=== PATIENT | female | born 1940 | race Caucasian/White ===

== ENCOUNTER → 2017-03-09 | Outpatient (CLI) | payer MEDICARE, OTHER ==
[~2017-03-09] MED LIST: DABI75CA3 PO; ESCI10TA10 PO; LEVO50TA PO
--- NOTE | 2017-03-09 12:16 | RAD ---
Bilateral duplex carotid sonography History: Previous stroke. Duplex sonography of the cervical portion of both carotid arteries was performed. Findings: Right side: Peak systolic flow velocity of the CCA is 67 cm/sec. Peak systolic flow velocity of the ICA is 76 cm/sec. The ICA/CCA ratio is 1.13. Peak end diastolic flow velocity of the ICA is 25 cm/sec. The peak systolic velocity of the ECA is 41 cm/sec. Right common carotid artery demonstrates mild intimal thickening. Mild plaquing is seen involving the right carotid system. Left side: Peak systolic flow velocity of the CCA is 66 cm/sec. Peak systolic flow velocity of the ICA is 61 cm/sec. The ICA/CCA ratio is 0.92. Peak end diastolic flow velocity of the ICA is 22 cm/sec. Peak systolic flow velocity of the ECA is 51 cm/sec. Left common carotid artery demonstrates mild intimal thickening. Mild plaquing is seen involving the left carotid system. Vertebral arteries: Bilateral vertebral arteries demonstrate antegrade flow. Impression: 1. No hemodynamically significant internal carotid artery stenosis identified. Note: Stenosis calculations for Doppler studies are derived from validated velocity criteria which are known to correlate with NASCET methodology of determining stenosis.
== END | disposition home or self-care (01) ==
LOC: US 11:00
PROVIDERS: ATTEND Specialist
DX: I69.90 Unspecified sequelae of unspecified cerebrovascular disease (principal); Z86.73 Personal history of transient ischemic attack (TIA), and cerebral infarction without residual deficits
CPT/HCPCS: 93880

== ENCOUNTER 2017-03-28 09:18 | Emergency (ER) | payer MEDICARE, OTHER ==
[~2017-03-28] VITALS: Ht 167.6 cm; Wt 57.6 kg
--- NOTE | 2017-03-28 09:40 | EKG ---
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
[2017-03-28] MEDS ORDERED: ASPIRIN 81 MG TAB.CHEW PO ONE (09:45)
--- NOTE | 2017-03-28 09:49 | PHYS DOC ---
General Chief Complaint: SHORTNESS OF BREATH Stated Complaint: SOA Time Seen by MD: 09:19 Source: patient Exam Limitations: clinical condition Problems: History of Present Illness Initial Comments Pt is 77/F to ED with spouse for cp/sob. 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 Spouse says he noticed pt coughing yesterday afternoon which worsened thru the night. Primarily nonproductive some clear "saliva" type sputum. Pt has had some mild chest tightness and worsening BREWSTER today. Peripheral edema noted on exam, pt/spouse unable to state whether LE edema is new/worse or at baseline. Chronic pradaxa anticoagulation due to atrial fibrillation, follows with Dr Del Rosario PCP and Dr Lema for arrhythmia. Timing/Duration: unsure (at least 12-15 hours according to pt spouse) Severity: moderate Modifying Factors: worse with movement, improves with rest Associated Symptoms: chest pain, cough, malaise, shortness of breath Allergies: Coded Allergies: No Known Drug Allergies (Unverified , 01/07/14) Past Medical History Medical History: other (CVA 2010 with apraxia/aphasia/right side weakness, atrial fibrillation) Surgical History: noncontributory Social History Smoker: non-smoker Alcohol: none Drugs: none Review of Systems Constitutional: denies chills, denies diaphoresis, denies fever, malaise EENTM: denies eye pain, denies blurred vision, denies ear pain, nose congestion , denies throat pain, denies throat swelling Respiratory: cough, denies shortness of breath, wheezing Cardiovascular: denies chest pain, edema, denies palpitations, denies syncope Gastrointestinal: denies diarrhea, denies nausea, denies vomiting Genitourinary: denies discharge, denies hematuria Psychiatric/Neurological: see HPI, denies headache Hematologic/Lymphatic: see HPI Physical Exam General Appearance: WD/WN, no apparent distress Ear, Nose, Throat: normal ENT inspection (yellow nasal/PND) Neck: non-tender, supple Respiratory: other (mild wheezes b/l with good air movement chest nontender no resp distress) Cardiovascular: normal peripheral pulses, regular rate, rhythm Gastrointestinal: non tender, soft Back: no CVA tenderness, no vertebral tenderness Neurologic/Psychiatric: alert, normal mood/affect, other (neuro at baseline see HPI) Skin: normal color, warm/dry Orders, Labs, Meds EKG: irregular 89bpm, artifact noted from pt tremor on arrival PATIENT: MOSHE SOARES ACCOUNT: [id number] : 1940 LOCATION: ER AGE: 77 SEX: F EXAM STATUS: REG ER ORD. PHYSICIAN: SCAR JESSICA DO REASON: CHEST PAIN, SHORTNESS OF BREATH PROCEDURE: PORTABLE CHEST 1V EXAM: CHEST 1 VIEW History: Chest pain, shortness of breath COMPARISON: 01/07/2014 TECHNIQUE: Single portable radiograph of the chest FINDINGS: The cardiac silhouette is unremarkable. The lungs are clear bilaterally. The costophrenic sulci are clear and well demarcated. IMPRESSION: No radiographic evidence of an acute cardiopulmonary process. DICTATED AND SIGNED BY: WILFRED SCHMITT MD DATE: 03/28/17 1008 CC: RADHA DEL ROSARIO MD; SCAR JESSICA DO ~ UA suspect for UTI will tx while awaiting cultures. Other labs unremarkable. Sx greater than 12 hours, normal labs, VSS. Pt breathing much better good breath sounds, only occasional cough. Pt/spouse note symptom improvement. Will tx to cover URI/UTI with close PCP follow up tomorrow. Tx plan discussed with pt and spouse who express agreement/understanding. Departure Time of Disposition: 11:16 Disposition: 01 HOME, SELF-CARE Diagnosis: URI with bronchospasm, UTI Condition: GOOD Patient Instructions: Bronchospasm, Adult, Upper Respiratory Infection, Adult, [id number], Urinary Tract Infection, [id number] Additional Instructions: Rest, no strenuous activity. Avoid environmental allergens and smoke as you are able. Continue current meds Rx: prednisone, doxycycline, albuterol MDI, guaif/codeine syrup Take meds with food. Follow up with your doctor in 2-3 days for recheck of symptoms and urine culture Return to ED with new or changing symptoms. SCAR JESSICA DO March 28, 2017 09:49
[2017-03-28 09:58] LABS: BASO % 1 % (0-3); EOS % 1 % (0-3); HEMATOCRIT 42.2 % (36.0-47.0); HEMOGLOBIN 14.1 g/dL (12.0-15.5); LYMPH # 0.8 x10^3/uL (1.0-4.8); LYMPH % 26 % (24-48); MEAN CORPUSCULAR HEMOGLOBIN 33 pg (25-35); MEAN CORPUSCULAR HGB CONC 33 g/dL (31-37); MEAN CORPUSCULAR VOLUME 98 fL (79-100); MONO # 0.6 x10^3/uL (0.0-1.1); MONO % 18 % (0-9); NEUT # 1.7 x10^3uL (1.8-7.7); NEUT % 54 % (31-73); PLATELET COUNT 125 x10^3/uL (140-400); RED CELL DISTRIBUTION WIDTH 13.6 % (11.5-14.5); WHITE BLOOD COUNT 3.1 x10^3/uL (4.0-11.0)
[2017-03-28] MEDS ORDERED: FUROSEMIDE 40 MG/4 ML VIAL IVP ONE (10:00)
[2017-03-28] MEDS ORDERED: IV NORMAL SALINE 1,000ML 1,000 ML ONE (10:09)
--- NOTE | 2017-03-28 10:11 | RAD ---
EXAM: CHEST 1 VIEW History: Chest pain, shortness of breath COMPARISON: 01/07/2014 TECHNIQUE: Single portable radiograph of the chest FINDINGS: The cardiac silhouette is unremarkable. The lungs are clear bilaterally. The costophrenic sulci are clear and well demarcated. IMPRESSION: No radiographic evidence of an acute cardiopulmonary process.
[2017-03-28 10:16] LABS: ALBUMIN 3.3 g/dL (3.4-5.0); ALBUMIN/GLOBULIN RATIO 1.1 (1.0-1.7); CALCIUM 8.9 mg/dL (8.5-10.1); CREATININE 0.9 mg/dL (0.6-1.0); POTASSIUM 3.6 mmol/L (3.5-5.1); TOTAL BILIRUBIN 0.1 mg/dL (0.2-1.0)
[2017-03-28 10:31] LABS: TOTAL PROTEIN 6.3 g/dL (6.4-8.2)
[2017-03-28 10:38] LABS: BILIRUBIN,URINE NEG (NEG); CLARITY,URINE CLEAR; COLOR,URINE YELLOW; GLUCOSE,URINE NEG (NEG); NITRITE,URINE NEG (NEG); UROBILINOGEN,URINE 0.2 mg/dL (0.2 mg/dL)
[2017-03-28 10:39] LABS: BACTERIA,URINE 0 /HPF (0-FEW); RBC,URINE RARE /HPF (0-2); SQUAMOUS EPITHELIAL CELL,UR OCC /LPF
[2017-03-28 10:42] LABS: AMPHETAMINE/METHAMPHETAMINE NEG (NEG); BARBITURATES NEG (NEG); BENZODIAZEPINES NEG (NEG); COCAINE NEG (NEG)
[2017-03-28 10:43] LABS: CANNABINOIDS NEG (NEG); METHADONE NEG (NEG); OPIATES NEG (NEG); PHENCYCLIDINE NEG (NEG)
[2017-03-28] MEDS ORDERED: IPRATRPIUM/ALBUTEROL 0.5/2.5MG 3 ML NEBU. ONE (10:44)
[2017-03-28] MEDS ORDERED: IPRATRPIUM/ALBUTEROL 0.5/2.5MG 3 ML NEBU. NEB ONE (11:00)
[2017-03-28] MEDS ORDERED: GUAI118L13 PO (11:15)
[2017-03-28] MEDS ORDERED: PRED20TA PO (11:15)
[2017-03-28] MEDS ORDERED: DOXY100C2 PO (11:15)
[2017-03-28] MEDS ORDERED: ALBU6.7H IH (11:15)
[2017-03-28 11:22] VITALS: BP 125/83
[2017-03-28] MEDS ORDERED: ALBUTEROL SULFATE 8GM INHALER. INH ONE (11:45)
== END 2017-03-28 11:30 | disposition home or self-care (01) ==
LOC: ER 09:18
DX: J06.9 Acute upper respiratory infection, unspecified (principal); J98.01 Acute bronchospasm; N39.0 Urinary tract infection, site not specified; I48.91 Unspecified atrial fibrillation; Z86.73 Personal history of transient ischemic attack (TIA), and cerebral infarction without residual deficits
CPT/HCPCS: 36415; 71010; 80053; 80305; 81001; 82550; 83690; 83880; 84484; 85027; 85379; 85610; 85730; 87086; 93005; 94640; 96374; 99285; J1940; J7613; J7620; G0481; 94664

== ENCOUNTER 2018-11-15 08:48 | Inpatient (IN) | payer MEDICARE, OTHER ==
[~2018-11-15 08:48] MED LIST changes: +ALBU2.5V8 IH; +DOXY100C2 PO; -ESCI10TA10 PO; +GUAI118L13 PO; +LEXAPRO10 MG PO; +PRED20TA PO
--- NOTE | 2018-11-15 09:23 | RAD ---
CT of the head without contrast, 11/15/2017: HISTORY: Slurred speech, stroke Comparison is made to a study from 03/10/2012. There is a large area of encephalomalacia in the left frontotemporal and anterior parietal regions compatible with an old infarct. There is mild compensatory enlargement of the left lateral ventricle. No acute intracranial hemorrhage or mass effect is seen. A small amount of fluid is now present in the left maxillary sinus. There is minimal mucosal thickening in the ethmoid sinuses. IMPRESSION: 1. Large old left cerebral infarct. 2. No acute intracranial abnormality is detected. 3. Minimal fluid in the left maxillary sinus presumably on an inflammatory basis. PQRS Compliance Statement: One or more of the following individualized dose reduction techniques were utilized for this examination: 1. Automated exposure control 2. Adjustment of the mA and/or kV according to patient size 3. Use of iterative reconstruction technique Electronically signed by: Salvador Molina MD (11/15/2018 9:19 AM) [facility]
--- NOTE | 2018-11-15 09:26 | RAD ---
Portable chest, 11/15/2017: HISTORY: Stroke Comparison is made to a study from 03/28/2017. The heart size and pulmonary vascularity are normal. There is mild scarring over the pulmonary apices. No acute infiltrate is seen. There is no evidence of pleural fluid. There are capsular calcifications related to breast implants. IMPRESSION: No acute cardiopulmonary abnormality is detected. Electronically signed by: Salvador Molina MD (11/15/2018 9:21 AM) [facility]
[2018-11-15 09:54] LABS: BASO % 1 % (0-3); EOS % 1 % (0-3); HEMATOCRIT 43.8 % (36.0-47.0); HEMOGLOBIN 14.4 g/dL (12.0-15.5); LYMPH # 0.9 x10^3/uL (1.0-4.8); LYMPH % 20 % (24-48); MEAN CORPUSCULAR HEMOGLOBIN 33 pg (25-35); MEAN CORPUSCULAR HGB CONC 33 g/dL (31-37); MEAN CORPUSCULAR VOLUME 101 fL (79-100); MONO # 0.4 x10^3/uL (0.0-1.1); MONO % 8 % (0-9); NEUT # 3.2 x10^3uL (1.8-7.7); NEUT % 71 % (31-73); PLATELET COUNT 133 x10^3/uL (140-400); RED BLOOD COUNT 4.34 x10^6/uL (3.50-5.40); RED CELL DISTRIBUTION WIDTH 13.5 % (11.5-14.5); WHITE BLOOD COUNT 4.5 x10^3/uL (4.0-11.0)
[2018-11-15 09:57] LABS: CALCIUM 8.5 mg/dL (8.5-10.1); GFR 53.9; POTASSIUM 3.8 mmol/L (3.5-5.1); TOTAL BILIRUBIN 0.4 mg/dL (0.2-1.0); TOTAL PROTEIN 5.9 g/dL (6.4-8.2)
--- NOTE | 2018-11-15 09:58 | PHYS DOC ---
Past History Past Medical History: A-Fib, CVA Past Surgical History: No Surgical History Smoking: Non-smoker Alcohol Use: None Drug Use: None Adult General Chief Complaint Chief Complaint: ALTERED MENTAL STATUS [facility] HPI Patient is a 78 year old female with history of previous CVA and right facial and arm weakness brought in by EMS because of one episode of syncope at 0730 today. Patient has been she had 1 episodes of gradually putting her head back and not responding for 1 minute. She had 1 episode of vomiting after became consciousness. Patient state she is her baseline condition now. Patient able to answer the questions with yes and no and denies any pain. Review of Systems Review of Systems Constitutional: Denies fever or chills [] Eyes: Denies change in visual acuity, redness, or eye pain [] HENT: Denies nasal congestion or sore throat [] Respiratory: Denies cough or shortness of breath [] Cardiovascular: No additional information not addressed in HPI [] GI: Denies abdominal pain, nausea, vomiting, bloody stools or diarrhea [] : Denies dysuria or hematuria [] Musculoskeletal: Denies back pain or joint pain [] Integument: Denies rash or skin lesions [] Neurologic: Denies headache, focal weakness or sensory changes [] Endocrine: Denies polyuria or polydipsia [] All other systems were reviewed and found to be within normal limits, except as documented in this note. Allergies Allergies Allergies Coded Allergies Type Severity Reaction Last Updated Verified No Known Drug Allergies 01/07/14 No Physical Exam Physical Exam Constitutional: Well nourished, no acute distress, non-toxic appearance. [] HENT: Normocephalic, atraumatic, bilateral external ears normal, oropharynx moist, no oral exudates, nose normal. [] Eyes: PERRLA, EOMI, conjunctiva normal, no discharge. [] Neck: Normal range of motion, no tenderness, supple, no stridor. [] Cardiovascular:Heart rate regular rhythm, no murmur [] Lungs & Thorax: Bilateral breath sounds clear to auscultation [] Abdomen: Bowel sounds normal, soft, no tenderness, no masses, no pulsatile masses. [] Skin: Warm, dry, no erythema, no rash. [] Back: No tenderness, no CVA tenderness. [] Extremities: No tenderness, no cyanosis, no clubbing, ROM intact, no edema. [] Neurologic: Alert and oriented X 1, mild right facial droop, mild right hand weakness, normal sensory function, Current Patient Data Vital Signs Vital Signs Date Time Temp Pulse Resp B/P (MAP) Pulse Ox O2 Delivery O2 Flow Rate FiO2 11/15/18 08:55 98.0 73 17 98 Room Air EKG EKG EKG interpreted by me. EKG at 0901 showed atrial fibrillation at rate of 69, no acute ST and T-wave abnormalities.[] Radiology/Procedures Radiology/Procedures [address] [address] IMAGING REPORT Signed PATIENT: MOSHE SOARES ACCOUNT: [id number] : 1940 LOCATION: ER AGE: 78 SEX: F EXAM STATUS: REG ER ORD. PHYSICIAN: SEAN STDODARD MD REASON: confusion PROCEDURE: CHEST AP ONLY Portable chest, 11/15/2017: HISTORY: Stroke Comparison is made to a study from 03/28/2017. The heart size and pulmonary vascularity are normal. There is mild scarring over the pulmonary apices. No acute infiltrate is seen. There is no evidence of pleural fluid. There are capsular calcifications related to breast implants. IMPRESSION: No acute cardiopulmonary abnormality is detected. Electronically signed by: Salvador Freeman MD (11/15/2018 9:21 AM) [facility] DICTATED AND SIGNED BY: SALVADOR FREEMAN MD DATE: 11/15/18 0920 CC: SEAN STODDARD MD; RADHA CARBAJAL MD ~ [address] [address] IMAGING REPORT Signed PATIENT: MOSHE SOARES ACCOUNT: [id number] : 1940 LOCATION: ER AGE: 78 SEX: F EXAM STATUS: REG ER ORD. PHYSICIAN: SEAN STODDARD MD REASON: confusion PROCEDURE: CT CODE STROKE HEAD WO CT of the head without contrast, 11/15/2017: HISTORY: Slurred speech, stroke Comparison is made to a study from 03/10/2012. There is a large area of encephalomalacia in the left frontotemporal and anterior parietal regions compatible with an old infarct. There is mild compensatory enlargement of the left lateral ventricle. No acute intracranial hemorrhage or mass effect is seen. A small amount of fluid is now present in the left maxillary sinus. There is minimal mucosal thickening in the ethmoid sinuses. IMPRESSION: 1. Large old left cerebral infarct. 2. No acute intracranial abnormality is detected. 3. Minimal fluid in the left maxillary sinus presumably on an inflammatory basis. PQRS Compliance Statement: One or more of the following individualized dose reduction techniques were utilized for this examination: 1. Automated exposure control 2. Adjustment of the mA and/or kV according to patient size 3. Use of iterative reconstruction technique Electronically signed by: Salvador Freeman MD (11/15/2018 9:19 AM) [facility] DICTATED AND SIGNED BY: SALVADOR FREEMAN MD DATE: 11/15/18912 CC: SEAN STODDARD MD; RADHA CARBAJAL MD ~ Course & Med Decision Making Course & Med Decision Making Pertinent Labs and Imaging studies reviewed. (See chart for details) Evaluation of patient in ER showed 78-year-old female patient with one episode of syncope. Code stroke was activated at arrival of patient does of reports of confusion but patient has been denies any confusion and stated she was in her baseline. Patient had unremarkable CT head for acute problem except for old CVA in left side. The patient with diagnosis of syncope. Dragon Disclaimer Dragon Disclaimer This electronic medical record was generated, in whole or in part, using a voice recognition dictation system. Departure Departure: Impression: Primary Impression: Syncope Additional Impressions: History of CVA (cerebrovascular accident) Hypoalbuminemia Disposition: ADMITTED INPATIENT (at 0955) Admitting Physician: Partha Johnson (accepted admission at 0954) Condition: IMPROVED Referrals: RADHA CARBAJAL MD (PCP) NIHSS - ED NIH Stroke Scale: NIH Stroke Scale Response (Comments) Value Level of Consciousness: 0 Alert/Responsive 0 LOC Questions: 1 Answers one correctly 1 LOC Commands: 0 Performs both tasks 0 Best Gaze: 0 Normal 0 Visual: 0 No visual loss 0 Facial Palsy: 1 Minor paralysis 1 Motor - Left Arm 0 No drift 0 Motor - Right Arm 0 No drift 0 Motor - Left Leg 0 No drift 0 Motor: Right Leg 0 No drift 0 Limb Ataxia: 0 Absent 0 Sensory: 0 No loss 0 Best Language: 1 Mild to mod aphasia 1 Dysathria: 1 Mild to moderate 1 Extinction and Inattention: 0 Normal 0 Total 4 Problem Qualifiers SEAN STODDARD MD Nov 15, 2018 09:58
[2018-11-15] MEDS ORDERED: DABI150C PO (10:34)
[2018-11-15] MEDS ORDERED: TOPI100T8 PO (10:34)
[2018-11-15 11:09] LABS: BILIRUBIN,URINE NEG (NEG); CLARITY,URINE HAZY; COLOR,URINE YELLOW; GLUCOSE,URINE NEG (NEG); NITRITE,URINE NEG (NEG); UROBILINOGEN,URINE 0.2 mg/dL (0.2 mg/dL)
[2018-11-15 11:10] LABS: BACTERIA,URINE FEW /HPF (0-FEW); RBC,URINE 0 /HPF (0-2); SQUAMOUS EPITHELIAL CELL,UR OCC /LPF
[2018-11-15 11:29] VITALS: BP 114/78
[2018-11-15] MEDS ORDERED: TOPIRAMATE 100 MG TABLET. PO SCH (11:30)
[2018-11-15] MEDS: DABIGATRAN ETEXILATE 150 MG CAPSULE. PO SCH ×2 (12:21→20:11)
[2018-11-15] MEDS: CITALOPRAM 20 MG TABLET. PO SCH (12:22)
[2018-11-15] MEDS: TOPIRAMATE 100 MG TABLET. PO SCH (12:24)
--- NOTE | 2018-11-15 12:59 | HP ---
ADMIT DATE: 11/15/2018 HISTORY OF PRESENT ILLNESS: The patient is a 78-year-old female patient, who was brought to the Emergency Room with altered mental status. Apparently, her said around 7:30-8:00 this morning, she was eating her breakfast, she lifted her head backwards and her mouth is open and became unconscious for a short period of time, although he was uncertain that there is no evidence of tonic-clonic movements. The patient did not bite her tongue or become incontinent of urine. Her level of consciousness returned back and was brought to the Emergency Room for further evaluation and treatment. The patient, herself has aphasia and is unable to give any information. Most of the information was gathered from her . 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 She is also known to have hypothyroidism and she developed seizure about 6 months after she had 3 cerebrovascular accidents. PAST SURGICAL HISTORY: Significant for cataract extraction and total abdominal hysterectomy. ALLERGIES: She has no known drug allergies. MEDICATIONS: She is currently on following medications: She is on albuterol sulfate 2 puffs every 4 hours, Pradaxa 150 mg twice a day, topiramate 100 mg twice a day, escitalopram oxalate 10 mg once a day, levothyroxine sodium 50 mcg once a day. FAMILY HISTORY: She has 2 sisters. The older sister was , but the cause of that is not clear. The other sister is alive and healthy. Her father of emphysema at age of 80 and mother at age of 100. SOCIAL HISTORY: She is , has 3 children from previous marriage and her has 3 children. She does not smoke or drink alcohol. 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 She also worked at a [employer]. REVIEW OF SYSTEMS: Difficult to obtain as she is aphasic. PHYSICAL EXAMINATION: GENERAL: When she arrived to the Emergency Room, she apparently looked well and was clearly in no apparent respiratory distress. No pallor, jaundice, cyanosis, or thyromegaly. No jugular venous distension. No limb edema. VITAL SIGNS: Her heart rate was 73, blood pressure was 106/36, temperature was 98, respiratory rate was 16 and oxygen saturation was 99%. HEAD, EYES, EARS, NOSE AND THROAT: Showed normocephalic, atraumatic. NECK: Supple. HEART: Showed normal first and second heart sounds. No gallop, rub or murmur. CHEST: Clear to auscultation. No crepitation or rhonchi. ABDOMEN: Scaphoid, soft, nontender. NEUROLOGIC: She was awake, alert, responds appropriately at times. She does not understand what we are talking. All her cranial nerves seem to be intact. She definitely has residual right-sided weakness. LABORATORY DATA: While in the Emergency Room, she had lab work done, which include a white cell count 4500, hemoglobin 14.4, hematocrit 44, MCV 101 and platelet count of 133,000. Her chemistry showed a serum sodium 144, potassium 3.8, chloride 109, bicarbonate 26, anion gap of 9, BUN 9, creatinine 1, estimated GFR was 54 mL per minute. Her glucose 117, calcium was 8.5. Total bilirubin, AST, ALT, alkaline phosphatase were normal. Total protein was 5.9, albumin 3. Her prothrombin time was 11.6, INR 1.2 and aPTT was 41. Her urinalysis showed the urine was yellow, hazy with a pH of 8.5, specific gravity 1.015. The urine was negative for protein, glucose, ketones, blood, nitrite and leukocyte esterase. There was small amount of leukocyte esterase. There was no rbc's, 1-4 wbc's and very few bacteria. She has had a CT scan of the head, which showed large old left cerebral infarct, no acute intracranial abnormalities detected. Minimal fluid in the left maxillary sinus presumably on inflammatory basis. Her chest x-ray showed the heart size and pulmonary vascularity are normal. There is mild scarring over the pulmonary abscess. No acute infiltrate is seen. There is no evidence of pleural fluid. There is capsular calcification related to breast implants. IMPRESSION: In summary, this is a 78-year-old female patient, who came in with what seemed to be syncopal episode. PLAN: My plan is to arrange for her to have bilateral carotid Doppler, will do fasting lipid profile. We did consult Dr. Serna and might have to arrange for her to have an echocardiogram. MEKA VALDEZ MD DR: ELLA/rupa JOB#: [id number] / [id number]
--- NOTE | 2018-11-15 14:35 | RAD ---
Carotid ultrasound, 11/15/2018: HISTORY: Syncope Duplex evaluation of the carotid arteries and neck was performed including grayscale, color-flow and spectral Doppler analysis. There is mild intimal thickening and smooth plaquing at the carotid bifurcations. On the right the peak systolic velocity in the internal carotid artery is 58 cm per sec with an end-diastolic velocity of 21 cm/s and an internal carotid to common carotid artery ratio of 0.9. These Doppler findings suggest narrowing in the 0-50 percent diameter range. There is a mild velocity acceleration in the right external carotid artery up to 225 cm/s suggesting mild narrowing at its origin. On the left the peak systolic velocity in the internal carotid artery is 57 cm/s with an end-diastolic velocity of 15 cm/s and an internal carotid to common carotid artery ratio of 0.7. These Doppler findings suggest narrowing in the 0-50 percent diameter range. Antegrade flow is present in both vertebral arteries in the neck. IMPRESSION: 1. Mild atherosclerotic plaquing at the carotid bifurcations with narrowing of the proximal internal carotid arteries in the 0-50 percent diameter range. 2. Probable mild narrowing of the right external carotid artery origin. Note: Stenosis calculations for CT, MRA and conventional angiography are based upon determination of the distal ICA diameter in accordance with the NASCET methodology. Stenosis calculations for Doppler studies are derived from validated velocity criteria which are known to correlate with NASCET methodology of determining stenosis. Electronically signed by: Salvador Molina MD (11/15/2018 2:31 PM) [facility]
[2018-11-15 17:56] VITALS: BP 109/74
--- NOTE | 2018-11-15 20:56 | EKG ---
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
--- NOTE | 2018-11-15 21:03 | CONS ---
DATE OF CONSULTATION: 11/15/2018 REFERRING PHYSICIAN: Dr. Johnson. REASON FOR CONSULTATION: Rule out stroke versus syncope. HISTORY OF PRESENT ILLNESS: This is a 78-year-old right-handed female, who was admitted through Emergency Room after she presented with acute mental status changes. According to her at approximately 9:30 this a.m., the patient was eating her breakfast and all of a sudden, she lifted her head backwards and became unresponsive for approximately 1 minute. She did have one episode of vomiting. Then, she returned to her baseline. The patient did not respond to questions; however, she has had a large left-sided stroke resulted in language dysfunction and the right upper extremity paresis. There has been no report of any seizure-like activities, tongue biting, bowel or bladder incontinence. According to her , she had a stroke in 03/2017. On arrival to Emergency Room, her blood pressure was normal. Initial nonenhanced head CT scan revealed evidence of a large old left frontotemporal and anterior parietal infarct in the left middle cerebral artery distributions without evidence of acute intracranial hemorrhage. PAST MEDICAL HISTORY: Significant for stroke with large left cerebral hemisphere infarct in the distribution of left middle cerebral artery, atrial fibrillation, seizure, depression, and hypothyroidism. PAST SURGICAL HISTORY: Significant for cataract extraction and hysterectomy. SOCIAL HISTORY: The patient is . She has 3 children. There is no history of smoking, alcohol drinking, or illicit drug use. CURRENT HOME MEDICATIONS: Albuterol inhaler, Pradaxa 150 mg twice daily, topiramate 100 mg twice daily, Lexapro 10 mg daily, and levothyroxine 50 mcg once daily. ALLERGIES: No known drug allergies. REVIEW OF SYSTEMS: A 10-point review of system was performed as mentioned above in history of present illness, otherwise unremarkable. PHYSICAL EXAMINATION: GENERAL: Well-developed and well-nourished female, not in acute distress. She weighs of 108 pounds. VITAL SIGNS: Blood pressure 109/74, respiratory rate 18, pulse is 84, temperature 98.7, and oxygen saturation 96% on room air. HEENT: Normocephalic and atraumatic, otherwise unremarkable. NECK: Supple. Negative for carotid bruit, lymphadenopathy, thyromegaly or JVD. LUNGS: Clear to A and P. CARDIOVASCULAR: Irregularly irregular rhythm, normal S1, S2. There is no S3, S4 or murmur. ABDOMEN: Soft. Bowel sounds positive. EXTREMITIES: Negative for cyanosis, clubbing or edema. There is tenderness over the distal right lower extremity. MENTAL STATUS: The patient is alert and oriented. Speech is abnormal and mixed with aphasia and paraphasia with anomia. The comprehension is intact, and she follows 1-step commands. Naming, writing and repetition are impaired. Further evaluation of her mental status as memory, judgment, and abstract thinking are limited at this time because of language dysfunction. CRANIAL NERVES: Pupils are equal and reactive to light and accommodation. The extraocular movements are intact. There is no nystagmus. There is no facial motor or sensory deficit. Hearing appeared to be intact. The palate is elevated symmetrically. Sternocleidomastoid muscles are powerful bilaterally. The patient shrugs her shoulders symmetrically. Protrudes her tongue in the midline without fasciculation or atrophy. MOTOR EXAMINATION: No focal muscle bulk was seen. The tone was normal. The strength was 4/5 in the right upper extremity with contraction of the right hand. The strength elsewhere was 5/5 throughout. Sensory examination revealed diminished pinprick and light touch senses over the right upper and lower extremities compared to those on the left. Deep tendon reflexes were symmetric. Gait: The stance is steady. LABORATORY DATA: CBC revealed white blood cells of 4500, hemoglobin 14.4, hematocrit 43.8, and platelet count 133,000. Chemistry: Sodium 144, potassium 3.8, chloride 109, CO2 of 26, BUN 9, creatinine 1, glucose 117, and calcium 8.5. Troponin level is normal. Urinalysis is negative. Coagulation: PT ____ 11.6, INR 1.2. DIAGNOSTIC STUDIES: Carotid Doppler study today revealed mild atherosclerotic plaquing with stenosis estimated between 0% to 50%. A chest x-ray revealed no acute cardiopulmonary abnormalities and a nonenhanced head CT scan revealed old large left middle cerebral artery infarct without acute intracranial hemorrhage. IMPRESSION: 1. Possible syncopal episode lasted 1 minute and remote possibility of nonconvulsive seizure-like activity. 2. Atrial fibrillation with controlled ventricular response. 3. Multiple large infarcts in the left middle cerebral artery distribution resulted in aphasia with normal comprehension and paraphasia and right hemiparesis, more prominent in the upper extremity. 4. Multiple medical problems include depression, hypothyroidism and seizure, which has been controlled by topiramate. RECOMMENDATIONS: 1. Continue with current management initiated by Dr. Johnson and home medications. 2. Await for echocardiogram. M Polina FIGUEROA MD DR: BIN/rupa JOB#: [id number] / [id number]
[2018-11-15 22:55] VITALS: BP 138/90
[2018-11-16 05:50] VITALS: BP 124/86
[2018-11-16] MEDS ORDERED: LEVOTHYROXINE 50 MCG TABLET PO SCH (06:00)
[2018-11-16 06:25] LABS: CALCIUM 8.5 mg/dL (8.5-10.1); CREATININE 0.8 mg/dL (0.6-1.0); GFR 69.7; POTASSIUM 3.9 mmol/L (3.5-5.1)
[2018-11-16] MEDS: TOPIRAMATE 100 MG TABLET. PO SCH (08:47)
[2018-11-16] MEDS: CITALOPRAM 20 MG TABLET. PO SCH (08:47)
[2018-11-16] MEDS: DABIGATRAN ETEXILATE 150 MG CAPSULE. PO SCH (08:47)
[2018-11-16 10:47] VITALS: BP 100/70
--- NOTE | 2018-11-16 15:00 | DS ---
DATE OF DISCHARGE: 11/16/2018 HOSPITAL COURSE: The patient is a 78-year-old female patient, who was brought to the Emergency Room by her with altered mental status. Apparently, her said that around 7:30-8 o'clock on the day of admission, she was eating her breakfast and she tilted her head backward. Her mouth is open and became unresponsive for a short period of time, although he was uncertain if there is any evidence of tonic-clonic movement. The patient did not bite her tongue. She did not become incontinent of urine. Her level of consciousness returned and was brought into the Emergency Room for further evaluation and treatment. The patient herself has aphasia and is unable to give any information. Most of the information was gathered from her . She was extensively investigated in the Emergency Room and has had a CT scan of the head, which basically showed large old left cerebral infarct. No acute intracranial abnormalities detected. She does have minimal fluid in the left maxillary sinus, presumably on an inflammatory basis. Her chest x-ray was unremarkable. Carotid Doppler ultrasound showed mild plaquing at the carotid bifurcation with narrowing of the proximal internal carotid arteries in the 0-15% diameter range. She was seen in consultation by the neurologist and that she has no further syncopal episode. She remained hemodynamically stable. A decision was made to discharge her home to continue all her current medication to be followed by Dr. Serna as an outpatient as well as by the Cardiology team. PHYSICAL EXAMINATION: GENERAL: When I saw her today, she was sitting on the edge of the bed comfortably, in no apparent distress. She is awake and alert. She is aphasic. VITAL SIGNS: Her heart rate was 82, blood pressure 100/70, temperature was 97.7, respiratory rate was 18 and oxygen saturation was 97%. HEAD, EYES, EARS, NOSE AND THROAT: Normocephalic, atraumatic. NECK: Supple. HEART: Showed normal first and second sounds. No gallop, rub or murmur. CHEST: Clear to auscultation. No crepitation or rhonchi. ABDOMEN: Scaphoid, soft, nontender. NEUROLOGIC: She is awake, alert, responding appropriately. All her cranial nerves intact. She has aphasia with residual right-sided hemiparesis. Her intake and output are incompletely recorded. LABORATORY DATA: Showed a white cell count of 4500, hemoglobin 14, hematocrit 44, MCV 101 and platelet count of 133,000. Her serum sodium was 142, potassium 3.9, chloride 109, bicarbonate 23, anion gap of 10, BUN 8, creatinine 0.8, estimated GFR was 70 mL per minute. Her glucose was 102, calcium was 8.5. Her prothrombin time was 11.6, INR 1.2 and her aPTT was 41. Urinalysis was unremarkable. DISCHARGE MEDICATIONS: She was discharged home to continue on albuterol sulfate for Proventil 2 puffs every 4 hours, Pradaxa 150 mg twice a day, Lexapro 10 mg once a day, levothyroxine sodium 50 mcg once a day, topiramate 100 mg twice a day. FINAL DISCHARGE DIAGNOSES: 1. Syncopal episode versus non-convulsive seizures. 2. Atrial fibrillation, rate controlled, well anticoagulated, multiple large infarcts in the left middle cerebral artery territory infarct resulted in aphasia and normal comprehension, but aphasia and right hemiparesis. OTHER MEDICAL PROBLEMS: Include A. Depression. B. Hypothyroidism. C. Seizure disorder that has been well controlled on topiramate. MEKA VALDEZ MD DR: ELLA/rupa JOB#: [id number] / [id number]
[2018-11-16 21:44] LABS: THYROID STIM HORMONE (TSH) 3.09 uIU/mL (0.358-3.740)
== END 2018-11-16 13:18 | disposition home or self-care (01) | DRG 101 ==
LOC: ER 08:48 → 1 SOUTH 10:11
PROVIDERS: ADMIT Internal Medicine; ATTEND Internal Medicine
DX: G40.909 Epilepsy, unspecified, not intractable, without status epilepticus (principal); G81.91 Hemiplegia, unspecified affecting right dominant side; R47.01 Aphasia; E03.9 Hypothyroidism, unspecified; E88.09 Other disorders of plasma-protein metabolism, not elsewhere classified; F32.9 Major depressive disorder, single episode, unspecified; G93.89 Other specified disorders of brain; I48.91 Unspecified atrial fibrillation; Z79.899 Other long term (current) drug therapy; Z82.5 Family history of asthma and other chronic lower respiratory diseases; Z86.73 Personal history of transient ischemic attack (TIA), and cerebral infarction without residual deficits; Z98.82 Breast implant status; Z90.710 Acquired absence of both cervix and uterus
CPT/HCPCS: 36415; 70450; 71045; 80048; 80053; 80061; 81001; 83605; 84443; 84484; 85025; 85610; 85730; 87086; 93005; 93880; 92610; 99285-25

== ENCOUNTER → 2019-01-03 | Outpatient (CLI) | payer MEDICARE, OTHER ==
[~2019-01-03] MED LIST changes: +DABI150C PO; +TOPI100T8 PO
--- NOTE | 2019-01-03 11:21 | CARD ---
MR#: [id number] Date of Study: 01/03/2019 Ordering Physician: RADHA CARBAJAL, Referring Physician: RADHA CARBAJAL Tech: [facility] APPROVED REPORT EXAM: Two-dimensional and M-mode echocardiogram with Doppler and color Doppler. Other Information Quality : Good Rhythm : Atrial Fibrillation INDICATION Syncope History of CVA 2010, Altered Mental Status 2D DIMENSIONS RVDd2.4 (2.9-3.5cm)Left Atrium(2D)2.7 (1.6-4.0cm) IVSd0.8 (0.7-1.1cm)Aortic Root(2D)2.4 (2.0-3.7cm) LVDd3.5 (3.9-5.9cm)LVOT Diameter2.0 (1.8-2.4cm) PWd0.9 (0.7-1.1cm)LVDs1.9 (2.5-4.0cm) FS (%) 30.0 %SV40.8 ml LVEF(%)60.0 (>50%) Aortic Valve AoV Peak Lebron.110.6cm/sAoV VTI19.9cm AO Peak GR.4.9mmHgLVOT Peak Lebron.67.3cm/s LVOT VTI 12.64cmAO Mean GR.3mmHg SIA (VMAX)1.46sp6SJD (VTI)1.96cm2 Mitral Valve MV E Vmmkidfn221.3cm/sMV DECEL RKGS042tu MV A Rilpvcdy25.0cm/sE/A Ratio2.6 Tricuspid Valve TR P. Algaiwhd645sx/sRAP TOZAAWFH5pkDx TR Peak Gr.99ocKmSZNC46duZu LEFT VENTRICLE The left ventricle is normal size. There is normal left ventricular wall thickness. The left ventricu lar systolic function is normal and the ejection fraction is within normal range. The Ejection Fracti on is 55-60%. There is normal LV segmental wall motion. Tissue Doppler imaging reveals mild left vent ricular diastolic dysfunction. RIGHT VENTRICLE The right ventricle is normal size. The right ventricular systolic function is normal. ATRIA The left atrium size is normal. The right atrium size is normal. The interatrial septum is intact wit h no evidence for an atrial septal defect or patent foramen ovale as noted on 2-D or Doppler imaging. AORTIC VALVE The aortic valve is calcified but opens well. Doppler and Color Flow revealed no significant aortic r egurgitation. There is no significant aortic valvular stenosis. MITRAL VALVE The mitral valve is calcified but opens well. Mitral annular calcification is mild. There is no evide nce of mitral valve prolapse. There is no mitral valve stenosis. Doppler and Color-flow revealed mild mitral regurgitation. TRICUSPID VALVE The tricuspid valve is normal in structure and function. Doppler and Color Flow revealed mild tricusp id regurgitation. There is mild pulmonary hypertension. The PA pressure was estimated at 38 mmHg. The re is no tricuspid valve stenosis. PULMONIC VALVE The pulmonic valve is not well visualized. Doppler and Color Flow revealed trace pulmonic valvular re gurgitation. There is no pulmonic valvular stenosis. GREAT VESSELS The aortic root is normal in size. The ascending aorta is mildly dilated at 3.3 cm. The IVC is normal in size and collapses >50% with inspiration. PERICARDIAL EFFUSION There is no evidence of significant pericardial effusion. Critical Notification Critical Value: No <Conclusion> The left ventricular systolic function is normal and the ejection fraction is within normal range. Th e Ejection Fraction is 55-60%. There is normal LV segmental wall motion. Doppler and Color Flow revealed mild tricuspid regurgitation. There is mild pulmonary hypertension. T he PA pressure was estimated at 38 mmHg. Signed by : Tello Quesada, Electronically Approved : 01/03/2019 11:20:46
== END | disposition home or self-care (01) ==
LOC: ECHO 08:46
PROVIDERS: ATTEND Specialist
DX: I08.1 Rheumatic disorders of both mitral and tricuspid valves (principal); I25.10 Atherosclerotic heart disease of native coronary artery without angina pectoris; I27.20 Pulmonary hypertension, unspecified; Z86.73 Personal history of transient ischemic attack (TIA), and cerebral infarction without residual deficits
CPT/HCPCS: 93306

== ENCOUNTER 2019-01-24 09:14 | Inpatient (IN) | payer MEDICARE, OTHER ==
[~2019-01-24] VITALS: Ht 167.6 cm; Wt 55.8 kg
[2019-01-24 09:37] LABS: HEMATOCRIT 44.5 % (36.0-47.0); HEMOGLOBIN 14.8 g/dL (12.0-15.5); RED BLOOD COUNT 4.42 x10^6/uL (3.50-5.40); RED CELL DISTRIBUTION WIDTH 14.8 % (11.5-14.5); WHITE BLOOD COUNT 4.8 x10^3/uL (4.0-11.0)
[2019-01-24 09:46] LABS: CALCIUM 8.7 mg/dL (8.5-10.1); CREATININE 0.9 mg/dL (0.6-1.0); GFR 60.7; POTASSIUM 3.7 mmol/L (3.5-5.1)
[2019-01-24] MEDS ORDERED: ONDANSETRON PF 4 MG/2 ML VIAL. IV PRN (10:00)
--- NOTE | 2019-01-24 10:16 | PHYS DOC ---
Past History Past Medical History: A-Fib, CVA, Hypothyroid, Seizure Past Surgical History: No Surgical History Smoking: Non-smoker Alcohol Use: None Drug Use: None Adult General Chief Complaint Chief Complaint: ALTERED MENTAL STATUS HPI HPI Patient is a very unfortunate 79-year-old female with a history of atrial fibrillation and large ischemic stroke in the left frontal area. The original stroke was in 2010 and since that time she has suffered with significant aphasia and apraxia. The states she has some balance issues but does ordinarily ambulate with little assistance. In November 2018 patient had a syncopal episode with increased confusion and was admitted. is unsure of exactly what became of this admission. He does admit that she has had a seizure back in 2010 or 12 right around the time of the original stroke. According to the , she has not had a seizure since that time. The states she was last seen well approximately 11 PM last night. He woke up and found her sitting at the breakfast table this morning gagging and drooling. There was a little blood on her tongue[] Review of Systems Review of Systems Review of systems is unobtainable secondary to confusion and aphasia. Current Medications Current Medications Current Medications Medications (Trade) Dose Ordered Sig/Joanne Start Time Stop Time Status Last Admin Dose Admin Ondansetron HCl (Zofran) 4 mg PRN Q4HRS PRN 01/24/19 10:00 01/25/19 09:59 Sodium Chloride 1,000 ml @ 100 mls/hr Q10H 01/24/19 09:59 01/25/19 09:58 Allergies Allergies Allergies Coded Allergies Type Severity Reaction Last Updated Verified No Known Drug Allergies 01/24/19 No Physical Exam Physical Exam Constitutional: Well developed, well nourished, no acute distress, non-toxic appearance. [] HENT: Normocephalic, atraumatic, bilateral external ears normal, oropharynx moist, no oral exudates, nose normal. [] Eyes: PERRLA, EOMI, conjunctiva normal, no discharge. [] Neck: Normal range of motion, no tenderness, supple, no stridor. [] Cardiovascular: Irregularly irregular no murmur[] Lungs & Thorax: Bilateral breath sounds clear to auscultation [] Abdomen: Bowel sounds normal, soft, no tenderness, no masses, no pulsatile masses. [] Skin: Warm, dry, no erythema, no rash. [] Back: No tenderness, no CVA tenderness. [] Extremities: No tenderness, no cyanosis, no clubbing, ROM intact, no edema. [] Neurologic: Patient is a phasic and apraxic but moves all 4 extremities reflexes are intact sensory intact in all 4 extremities[] Psychologic: Somnolent. [] Current Patient Data Vital Signs Vital Signs Date Time Temp Pulse Resp B/P (MAP) Pulse Ox O2 Delivery O2 Flow Rate FiO2 01/24/19 10:01 76 18 97/37 (57) 95 Room Air 01/24/19 09:40 97.6 Lab Results Laboratory Tests Test 01/24/19 09:25 White Blood Count 4.8 x10^3/uL (4.0-11.0) Red Blood Count 4.42 x10^6/uL (3.50-5.40) Hemoglobin 14.8 g/dL (12.0-15.5) Hematocrit 44.5 % (36.0-47.0) Mean Corpuscular Volume 101 fL (79-100) H Mean Corpuscular Hemoglobin 34 pg (25-35) Mean Corpuscular Hemoglobin Concent 33 g/dL (31-37) Red Cell Distribution Width 14.8 % (11.5-14.5) H Platelet Count 131 x10^3/uL (140-400) L Prothrombin Time 11.8 SEC (9.4-11.4) H Prothrombin Time INR 1.2 (0.9-1.1) H PTT 44 SEC (23-33) H Sodium Level 142 mmol/L (136-145) Potassium Level 3.7 mmol/L (3.5-5.1) Chloride Level 109 mmol/L (98-107) H Carbon Dioxide Level 23 mmol/L (21-32) Anion Gap 10 (6-14) Blood Urea Nitrogen 15 mg/dL (7-20) Creatinine 0.9 mg/dL (0.6-1.0) Estimated GFR (Cockcroft-Gault) 60.7 Glucose Level 144 mg/dL (70-99) H Glucose (Fingerstick) 145 mg/dL (70-99) H Calcium Level 8.7 mg/dL (8.5-10.1) EKG EKG [EKG: Atrial fibrillation rate of [address]-T changes] Radiology/Procedures Radiology/Procedures [] Impressions: CT scan of the brain shows a stable left frontal parietal stroke as interpreted by the radiologist Course & Med Decision Making Course & Med Decision Making Pertinent Labs and Imaging studies reviewed. (See chart for details) [ED course: Evaluation reveals a very unfortunate 79-year-old female with what appears to be a stable left frontal stroke. I think her symptoms may be related to seizure activity. While this is not been witnessed I feel like it is the most likely answer to this clinical dilemma. I spoke with Dr. Rasmussen who agrees to accept the patient for admission. We will have the patient's neurologist way in as well. At this time the patient will not be loaded on an antiseizure medicine.] Dragon Disclaimer Dragon Disclaimer This electronic medical record was generated, in whole or in part, using a voice recognition dictation system. Departure Departure: Impression: Primary Impression: Altered mental status Additional Impressions: Seizure disorder Atrial fibrillation Disposition: ADMITTED INPATIENT Admitting Physician: Partha Johnson Condition: GUARDED Referrals: RADHA CARBAJAL MD (PCP) Problem Qualifiers Primary Impression: Altered mental status Altered mental status type: unspecified Qualified Codes: R41.82 - Altered mental status, unspecified Additional Impressions: Atrial fibrillation Atrial fibrillation type: chronic Qualified Codes: I48.2 - Chronic atrial fibrillation JESSA BOYD DO Jan 24, 2019 10:16
--- NOTE | 2019-01-24 10:19 | RAD ---
PQRS Compliance Statement: One or more of the following individualized dose reduction techniques were utilized for this examination: 1. Automated exposure control 2. Adjustment of the mA and/or kV according to patient size 3. Use of iterative reconstruction technique CT HEAD WITHOUT CONTRAST History: CODE STROKE. AMS, prior stroke LT. Current verbal dificit, right side weakness. Comparison: CT head without contrast, November 15, 2018. Procedure: Axial images are obtained of the head from the skull base through the vertex without IV contrast. Findings: Large area of encephalomalacia involving the left temporal and frontal and anterior parietal lobes is stable. Unchanged ex vacuo dilation of the left lateral ventricle. There are mild periventricular white matter changes of chronic small vessel ischemic disease. No mass-effect, midline shift, acute hemorrhage, extra-axial fluid collection, or obvious acute infarction is identified. Basilar cisterns are patent. Bone windows demonstrate no acute calvarial abnormality. Minimal mucosal thickening bilateral ethmoid and right maxillary sinuses. Mastoid air cells are well aerated. IMPRESSION: 1. No acute intracranial abnormality. 2. Unchanged old large left cerebral hemisphere infarct. Findings discussed with JESSA BOYD at 01/24/2019 10:10 AM. FOR INTERNAL CODING PURPOSES Critical result: RESULT CODE: (C) Electronically signed by: Medardo Oneil MD (01/24/2019 10:16 AM) [id number]
[2019-01-24 13:08] VITALS: BP 107/93
[2019-01-24] MEDS: IV NORMAL SALINE 1,000ML 1,000 ML IV SCH (14:06)
[2019-01-24 14:19] LABS: BACTERIA,URINE 0 /HPF (0-FEW); BILIRUBIN,URINE NEG (NEG); CLARITY,URINE CLOUDY; COLOR,URINE YELLOW; GLUCOSE,URINE NEG (NEG); NITRITE,URINE NEG (NEG); RBC,URINE 0 /HPF (0-2); UROBILINOGEN,URINE 0.2 mg/dL (0.2 mg/dL); WBC,URINE RARE /HPF (0-4)
[2019-01-24 14:20] LABS: AMORPHOUS SEDIMENT,UR PRESENT /HPF; SQUAMOUS EPITHELIAL CELL,UR OCC /LPF
[2019-01-24 15:47] VITALS: BP 91/68
[2019-01-24 19:20] VITALS: BP 110/71
[2019-01-24] MEDS: DABIGATRAN ETEXILATE 150 MG CAPSULE. PO SCH (21:31)
[2019-01-24] MEDS: TOPIRAMATE 100 MG TABLET. PO SCH (21:32)
[2019-01-24 23:40] VITALS: BP 127/81
[2019-01-25] MEDS: IV NORMAL SALINE 1,000ML 1,000 ML IV SCH ×2 (00:17→05:59)
[2019-01-25 05:23] VITALS: BP 103/56
[2019-01-25] MEDS ORDERED: LEVOTHYROXINE 50 MCG TABLET PO SCH (06:00)
[2019-01-25 06:46] LABS: HEMATOCRIT 41.6 % (36.0-47.0); HEMOGLOBIN 13.9 g/dL (12.0-15.5); RED BLOOD COUNT 4.1 x10^6/uL (3.50-5.40); RED CELL DISTRIBUTION WIDTH 14.5 % (11.5-14.5); WHITE BLOOD COUNT 3.1 x10^3/uL (4.0-11.0)
[2019-01-25 06:47] LABS: CALCIUM 8.2 mg/dL (8.5-10.1); CREATININE 0.7 mg/dL (0.6-1.0); GFR 81.1; POTASSIUM 3.6 mmol/L (3.5-5.1)
[2019-01-25 07:43] VITALS: BP 107/74
[2019-01-25] MEDS: TOPIRAMATE 100 MG TABLET. PO SCH (07:47)
[2019-01-25] MEDS: DABIGATRAN ETEXILATE 150 MG CAPSULE. PO SCH (07:47)
[2019-01-25] MEDS ORDERED: CITALOPRAM 20 MG TABLET. PO SCH (09:00)
[2019-01-25 12:05] VITALS: BP 106/73
--- NOTE | 2019-01-25 12:21 | HP ---
ADMIT DATE: 01/24/2019 HISTORY OF PRESENT ILLNESS: The patient is a 79-year-old female patient, who is known to have atrial fibrillation and large ischemic stroke of her left frontal area that occurred in 2010 and since then, the patient has suffered significant aphasia and apraxia and her also stated that she has some balance issues, but does not ordinary ambulate with little assistance. She was admitted in November 2018 with a syncopal episode with increased confusion, although there was no evidence that she has a stroke. She apparently was seen recently by Dr. Serna in his office and her EEG did not reveal any evidence of epilepsy and her brought her to the Emergency Room, and found her sitting at the breakfast table this morning on the day of admission with gagging and drooling. There was little blood in her tongue. She was seen in the Emergency Room and had a CT scan of the brain, which showed stable left frontoparietal stroke and she was admitted for further evaluation and consult Dr. Serna to assist in her management. PAST MEDICAL HISTORY: Significant for TIA. She has a cerebrovascular accident involving left middle cerebral artery territory infarct with resultant right side hemiplegia, aphasia and apraxia. She was also known to have hypothyroidism and developed seizures about 6 months after she had 3 cerebrovascular accident. PAST SURGICAL HISTORY: Significant for cataract extraction and total abdominal hysterectomy. ALLERGIES: She has no known drug allergies. FAMILY HISTORY: She has 2 sisters and older sister was because that is not clear. The other sister is alive and healthy. Her father of emphysema at age of 80 and mother at age of 100. SOCIAL HISTORY: She is , has 3 children from previous marriage and her has 3 children. She does not smoke or drink alcohol. 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 MEDICATIONS: She is currently on following medications: She is on albuterol sulfate 2 puffs every 4 hours, Pradaxa 150 mg twice a day, topiramate 100 mg twice a day, escitalopram oxalate 10 mg daily and levothyroxine sodium 50 mcg once a day. REVIEW OF SYSTEMS: Unobtainable. PHYSICAL EXAMINATION: GENERAL: On arrival to the Emergency Room, the patient was awake, alert, responding appropriately, although obviously she has expressive aphasia. She was somewhat pale, but no jaundice, cyanosis, or thyromegaly. No jugular venous distension. No lower limb edema. VITAL SIGNS: Her heart rate was 74, blood pressure was 95/60, temperature was 97.6, respiratory rate was 18 and oxygen saturation was 95% on room air. HEAD, EYES, EARS, NOSE, AND THROAT: Showed normocephalic, atraumatic. NECK: Supple. HEART: Showed normal first and second heart sounds with no gallop, rub or murmur. CHEST: Clear to auscultation. No crepitation or rhonchi. ABDOMEN: Distended, soft, nontender. NEUROLOGIC: She is awake, alert. All her cranial nerves are grossly intact. EXTREMITIES: She moves her extremities without difficulty. She ambulates without assistance. LABORATORY DATA: Her lab work on arrival in the Emergency Room showed a white cell count 4800, hemoglobin 14.8, hematocrit 44.5, MCV 101, and platelet count of 131,000. Her chemistry showed a serum sodium 142, potassium 3.7, chloride 109, bicarbonate 23, anion gap of 10, BUN 15, creatinine 0.9, estimated GFR was 60.7 mL per minute. Her glucose was 144 and calcium was 8.7. Her prothrombin time was 11.8, INR 1.2, APTT was 44. Urinalysis was essentially unremarkable and nasal screen for MRSA by PCR was negative. Her CT scan of the head showed that the patient has large area of encephalomalacia involving the left temporal and frontal and anterior parietal lobes that is stable. She has unchanged ex vacuo dilation of the left lateral ventricle. There are mild periventricular white matter changes of chronic small vessel ischemic disease. There is no mass effect, midline shift or acute hemorrhage, extraaxial fluid collection or previous acute infarction is identified. Basilar cisterns are patent. Bone windows demonstrate no acute calvarial abnormality. Minimal mucosal thickening of bilateral ethmoid and right maxillary sinuses, mastoid air cells are well aerated. PLAN: The patient was admitted to ICU, continued on all her medications. We did consult Dr. Serna to assist with her management. MEKA VALDEZ MD DR: ELLA/rupa JOB#: [id number] / [id number]
--- NOTE | 2019-01-25 14:00 | DS ---
DATE OF DISCHARGE: 01/24/2019 HISTORY OF PRESENT ILLNESS: The patient is a 79-year-old female patient, who was brought to the Emergency Room by her yesterday for a possible seizure. She apparently found her sitting at the breakfast table, gagging and drooling. There was a little blood on her tongue. She had a CT scan, which showed the old finding of a left frontoparietal encephalomalacia and was continued on all her current medication. She was seen by Dr. Serna who could not get the patient has a seizure activity and apparently she was seen at his office only about a week ago and she has had an electroencephalogram, which showed no evidence of epilepsy and he recommended to continue with the same medication without changing. The patient remained stable. She has had no further episode of seizure or syncope. She was able to feed herself and was able to walk without assistance and a decision was made to discharge her home to follow with her primary care physician and Dr. Serna as an outpatient. PHYSICAL EXAMINATION: GENERAL: When I saw her this afternoon, she was awake, alert, responding appropriately. There was no pallor, jaundice, cyanosis or thyromegaly. No jugular venous distension noted. No lower limb edema. VITAL SIGNS: Her heart rate was 74, blood pressure was 107/74, temperature was 97.5, respiratory rate was 20, and oxygen saturation was 96%. HEAD, EYES, EARS, NOSE AND THROAT: Showed normocephalic, atraumatic. NECK: Supple. HEART: Showed normal first and second heart sounds. No gallop or murmur. CHEST: Clear to auscultation. No crepitation or rhonchi. ABDOMEN: Distended, soft, nontender. NEUROLOGIC: She has obviously a residual right-sided hemiparesis, aphasia and apraxia. Her intake was 1400 and output was 1350. LABORATORY DATA: Her lab work this morning showed a white cell count of 3,100, hemoglobin 13.9, hematocrit 41, MCV 101, and platelet count of 119,000. Her serum sodium was 144, potassium 3.6, chloride 112, bicarbonate 21, anion gap of 11, BUN 11, creatinine 0.7, estimated GFR was 81 mL per minute, her glucose 95 and calcium was 8.2. Her prothrombin time, INR and aPTT were normal as well as her urinalysis. 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 MEKA VALDEZ MD DR: ELLA/rupa JOB#: [id number] / [id number]
--- NOTE | 2019-01-25 14:22 | CONS ---
DATE OF CONSULTATION: 01/24/2019 REFERRING PHYSICIAN: Dr. Johnson. REASON FOR CONSULTATION: Acute mental status changes, rule out seizure versus syncope. HISTORY OF PRESENT ILLNESS: This is a 79-year-old right-handed female, who was admitted to Emergency Room after the patient presented with seizure-like activity versus TIA. The patient is known with a history of stroke in 2010, resulted in a large infarct in the right middle cerebral artery distributions, resulted in language dysfunctions with ____ reading, writing, and repetition. According to the patient, she had one single seizure around the stroke in 2010. In the Emergency Room, the patient was found to have normal hypertension. Because of aphasia, the patient was unable to provide any information. Initial nonenhanced head CT scan revealed evidence of chronic small vessel ischemic changes and a left large old infarct in the left middle cerebral artery including frontotemporal and anterior parietal lobe. The patient's has videotaped his when she had seizure-like activities, but I have to wait until tomorrow morning to look at those videotapes. Since admission to ICU, the patient has not had any seizure. PAST MEDICAL HISTORY: Significant for stroke with residual of language dysfunctions, atrial fibrillation, seizure, depression, and hypothyroidism. PAST SURGICAL HISTORY: Positive for cataract extraction and hysterectomy. SOCIAL HISTORY: The patient is , she has 3 children. There is no history of smoking, drinking, or illicit drug use. FAMILY HISTORY: Not contributory. CURRENT HOME MEDICATIONS: Albuterol inhaler, Pradaxa 150 mg twice daily for atrial fibrillations, Lexapro 10 mg daily, levothyroxine 50 mcg p.o. daily, and topiramate 100 mg once daily for seizure control. ALLERGIES: No known drug allergies. PHYSICAL EXAMINATION: GENERAL: Well-developed and well-nourished female, not in acute distress. VITAL SIGNS: Afebrile. Oxygen saturation is 95% on room air, respiratory rate 18, pulse is 74 and regular, and blood pressure is 95/60. HEENT: Normocephalic and atraumatic, otherwise unremarkable. NECK: Supple. Negative for carotid bruit, lymphadenopathy or thyromegaly. LUNGS: Clear to A and P. CARDIOVASCULAR: Regular rhythm, normal S1, S2. There is no S3, S4, or murmur. ABDOMEN: Soft. Bowel sounds positive. EXTREMITIES: Negative for cyanosis or pitting edema. NEUROLOGIC: MENTAL STATUS: The patient is alert and somewhat oriented, but she has language dysfunctions, presented with aphasia and difficulty with naming and writing. She follows one simple 1-step commands. Further evaluation is limited at this time. Cranial nerves: Pupils are equal and reactive to light and accommodation. Extraocular movements are intact. There is no nystagmus. There is no facial motor or sensory deficit. Hearing appears to be intact. The palate is elevated symmetrically. Sternocleidomastoid muscles are powerful bilaterally. The patient shrugs ____. Motor examination revealed no focal muscle bulk was seen. The tone is normal and probably slightly increased at the right elbow. Strength was 4/5 in the upper extremity compared to 5/5 on the left side. Sensory examination revealed normal pinprick and light touch senses. Deep tendon reflexes were symmetric and hypoactive with ____ responses. Gait is not tested. IMPRESSION: 1. Questionable seizure-like activities. 2. Atrial fibrillation with left middle cerebral artery large infarct, hypothyroidism, and seizure, probably secondary to the stroke but no recurrence since 2010 until possible recurrence recently. RECOMMENDATIONS: The patient has been on topiramate 100 mg b.i.d. for seizure control. Should the patient have witnessed recurrent seizures, I would recommend to load the patient with Keppra at 750 mg intravenously and continue with the maintenance dose at 500 mg b.i.d., otherwise will continue with current management. M Polina FIGUEROA MD DR: BIN/rupa JOB#: [id number] / [id number]
--- NOTE | 2019-01-25 22:02 | PN ---
DATE: 01/25/2019 SUBJECTIVE: The patient has not had any recurrent seizure spell like seizures. I have had the opportunity to see video tape that was produced by her about the spell she had at home. Apparently, she had a few-second alteration of consciousness; however, she was responding well after that. The patient had an EEG in my office 2 weeks ago, which did not show any active clinical or electrical seizures. OBJECTIVE: GENERAL: Well-developed, well-nourished female, not in acute distress. VITAL SIGNS: Blood pressure 107/74, respiratory rate 20, pulse is 74 and regular, oxygen saturation 96% on room air. HEENT: Normocephalic, atraumatic, otherwise unremarkable. NECK: Supple. Negative for carotid bruit, lymphadenopathy or thyromegaly. LUNGS: Clear to A and P. CARDIOVASCULAR: Regular rhythm, normal S1, S2. There is no S3, S4, or murmur. ABDOMEN: Soft. Bowel sounds positive. EXTREMITIES: Negative for cyanosis, clubbing or pitting edema. NEUROLOGIC: The patient is alert and oriented. She has aphasia secondary to previous stroke. Cranial nerves are grossly intact. The patient moves all extremities equally. The strength is 4/5 in the upper extremities and ____ 5/5 throughout. Sensory examination revealed to noxious stimuli in all extremities. Deep tendon reflexes were symmetric without pathologic responses. Gait not tested at this time. LABORATORY DATA: CBC revealed white blood cells of 3.1 thousand, hemoglobin 13.9, hematocrit 41.6, platelet count 119,000. Chemistry revealed sodium of 144, potassium 3.6, chloride 112, CO2 of 29, BUN 11, creatinine 0.7, glucose 95 and calcium 8.2. Urinalysis is normal. Coagulation: PT is 11.8, INR 1.2. IMPRESSION: 1. Alteration of consciousness, questionable brief complex partial seizure. The patient has not had any recurrent episodes. 2. Multiple medical problems include atrial fibrillation, status post old large left MCA infarct, seizure secondary to stroke and hypothyroidism. RECOMMENDATIONS: Continue with current management with topiramate 100 mg b.i.d. If the patient had recurrent complex partial seizure, we will increase Topamax to 3 times daily. The other alternative is to switch to Keppra at 500 mg b.i.d. Discussed with in detail and he will update me for any changes. M Polina FIGUEROA MD DR: BIN/rupa JOB#: [id number] / [id number]
--- NOTE | 2019-01-26 12:39 | EKG ---
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
== END 2019-01-25 12:06 | disposition home or self-care (01) | DRG 312 ==
LOC: ER 09:14 → ICU 13:00
PROVIDERS: ADMIT Internal Medicine; ATTEND Internal Medicine
DX: R55 Syncope and collapse (principal); I69.951 Hemiplegia and hemiparesis following unspecified cerebrovascular disease affecting right dominant side; E03.9 Hypothyroidism, unspecified; R13.10 Dysphagia, unspecified; F32.9 Major depressive disorder, single episode, unspecified; G40.909 Epilepsy, unspecified, not intractable, without status epilepticus; I10 Essential (primary) hypertension; I48.91 Unspecified atrial fibrillation; Z82.5 Family history of asthma and other chronic lower respiratory diseases; Z90.710 Acquired absence of both cervix and uterus; Z98.49 Cataract extraction status, unspecified eye
CPT/HCPCS: 36415; 70450; 80048; 81001; 82947; 85027; 85610; 85730; 87086; 87641; 93005; 99285-25; J7030

== ENCOUNTER → 2019-11-22 | Outpatient (CLI) | payer MEDICARE, OTHER ==
--- NOTE | 2019-11-22 16:34 | RAD ---
CHEST PA LATERAL History: Acute respiratory infection Comparison: 11/15/2018 AP view of the chest. Findings: Frontal and lateral views of the chest were obtained. Bilateral breast implants are present with calcified margins. Biapical pleural thickening noted. The cardiomediastinal silhouette is normal. Pulmonary vasculature is normal. The lungs are clear. No pleural effusion or pneumothorax is seen. There is no acute bone abnormality. IMPRESSION: No acute cardiopulmonary process. Electronically signed by: Ruiz Miller MD (11/22/2019 4:31 PM) [facility]
== END | disposition home or self-care (01) ==
LOC: DXRAD 16:11
PROVIDERS: ATTEND Specialist
DX: J92.9 Pleural plaque without asbestos (principal); J06.9 Acute upper respiratory infection, unspecified
CPT/HCPCS: 71046

== ENCOUNTER → 2021-09-05 | Outpatient (CLI) | payer MEDICARE, OTHER ==
[~2021-09-05] MED LIST changes: -DOXY100C2 PO; +DOXY100C3 PO
--- NOTE | 2021-09-05 17:30 | RAD ---
AP view of the pelvis and two-view study of both hips Clinical indications: Bilateral hip pain. FINDINGS: Hip joints are symmetric without arthritic change. No acute fracture or dislocation or lyti c process is evident. No diastases of the symphysis pubis or either SI joint is seen. 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 IMPRESSION: Unremarkable study of both hips. Electronically signed by: Christofer Martinez MD (09/05/2021 5:27 PM) [id number]
--- NOTE | 2021-09-05 17:31 | RAD ---
Three-view study lumbar spine Clinical indications: Low back pain. FINDINGS: The transverse processes are intact. No compression fracture or discitis or lytic process i s evident. No anterolisthesis is seen. Degenerative facet arthropathy is seen at L4-5 and L5-S1. Ther e is minimal degenerative endplate spurring throughout the lumbar spine without significant disc spac e narrowing. IMPRESSION: Degenerative facet arthropathy is seen at L4-5 and L5-S1. No acute compression fracture. Electronically signed by: Christofer Martinez MD (09/05/2021 5:29 PM) [id number]
== END ==
LOC: RAD 11:31
PROVIDERS: ATTEND Physician Assistant
DX: M16.0 Bilateral primary osteoarthritis of hip (principal); M47.817 Spondylosis without myelopathy or radiculopathy, lumbosacral region
CPT/HCPCS: 72100; 73521